=== PATIENT | female | born 2000 | race Caucasian/White ===

== ENCOUNTER 2020-01-18 06:51 | Inpatient (IN) | payer OTHER ==
[2020-01-18] MEDS ORDERED: ELECTROLYTE-148 SOLN 1,000 ML IV SCH ×2 (08:00→09:00)
[2020-01-18] MEDS ORDERED: BUTORPHANOL TARTRATE 1 MG/ML VIAL IVPB ONE (09:41)
[2020-01-18] MEDS ORDERED: PROMETHAZINE HCL 25 MG/1 ML VIAL IVPB ONE (09:41)
--- NOTE | 2020-01-18 09:41 | PD.OB.PROG ---
Past Medical History - Primary Care Physician PCP:: teresa Documenting Provider Type: Laborist - Admission Chief Complaint: pain History of Present Illness: 38 w 4 d. Uneventful History Source: Medical Record, Caregiver - Nursing Documentation Nursing Documentation Reviewed: Yes - Past Medical History PAINT TINTER: Denies/None Cardio/Vascular: Denies/None Pulmonary: Denies/None Gastrointestinal: Denies/None Hepatobiliary: Denies/None Renal/: Denies/None Heme/Onc: Denies/None Infectious Disease: Denies/None Psych: Denies/None Musculoskeletal: Denies/None Rheumatology: Denies/None ENT: Denies/None Endocrine: Denies/None Dermatology: Denies/None - Social History History of Recent Travel: No Review of Systems - Review of Systems Constitutional: reports: No Symptoms Eyes: reports: No Symptoms HENT: reports: No Symptoms Neck: reports: No Symptoms Cardiovascular: reports: No Symptoms Respiratory: reports: No Symptoms Gastrointestinal: reports: No Symptoms Genitourinary: reports: No Symptoms Breasts: reports: No Symptoms Reported Musculoskeletal: reports: No Symptoms Integumentary: reports: No Symptoms Neurological: reports: No Symptoms Endocrine: reports: No Symptoms Hematology/Lymphatic: reports: No Symptoms Psychiatric: reports: No Symptoms Physical Exam - Obstetrical Constitutional: Yes: Well Nourished, No Distress, Calm Eyes: Yes: WNL, Conjunctiva Clear, EOM Intact HENT: Yes: WNL, Atraumatic, Normocephalic Neck: Yes: WNL, Supple, Trachea Midline Cardiovascular: Yes: WNL, Regular Rate and Rhythm Lungs: Clear to auscultation Breast(s): Yes: WNL - Abdominal Exam/OB Fundal Height: 40 Number of Fetuses: Single Presentation: Vertex Regularity: Regular Intensity: Mild/Mod Monitor Mode: External Heart Rate Location: LUQ Category: I Accelerations: Non-Uniform Decelerations: None - Vaginal Exam/OB Vaginal Exam Deferred: No Speculum Exam: No Dilatation (cm): 2 Effacement (%): 50 Amniotic Membrane Status: Intact Presentation: Vertex/Position Station: -2 - Physical Exam Musculoskeletal: Yes: WNL Problem List - Problems (1) 38 weeks gestation of Code(s): Z3A.38 - 38 WEEKS GESTATION OF Assessment/Plan Early labor. In pain; moni D/W Dr. Dodson. Stadileep/[place]. Expecting delivery today.
[2020-01-18 10:41] LABS: BASO % 0.4 % (0-2.0); EOS % 0.2 % (0-4.5); HEMATOCRIT 37.7 % (32.4-45.2); HEMOGLOBIN 12.7 GM/dL (10.7-15.3); LYMPH % 9.1 % (8-40); MCHC 33.7 g/dl (32.0-36.0); MEAN CELL VOLUME 94.9 fl (80-96); MEAN PLT VOLUME 8.2 fl (7.5-11.1); MONO % 5.5 % (3.8-10.2); NEUT % 84.8 % (42.8-82.8); PLATELET COUNT 234 K/MM3 (134-434); RBC 3.97 M/mm3 (3.60-5.2); RDW 13.5 % (11.6-15.6); WHITE BLOOD COUNT 10.3 K/mm3 (4.0-10.0)
[2020-01-18 10:48] LABS: PROTHROMBIN TIME (PATIENT) 11.8 SEC (9.7-13.0)
[2020-01-18 10:51] LABS: ACTIVATED PTT 25.3 SECONDS (25.2-36.5)
[2020-01-18 11:00] LABS: CALCIUM 8.5 mg/dL (8.5-10.1); CREATININE 0.7 mg/dL (0.55-1.3)
[2020-01-18] MEDS ORDERED: BUTORPHANOL TARTRATE 2 MG/ML VIAL ONE (11:02)
[2020-01-18] MEDS ORDERED: PROMETHAZINE HCL 25 MG/1 ML VIAL ONE (11:02)
[2020-01-18 11:05] LABS: BLOOD UREA NITROGEN 6.8 mg/dL (7-18)
[2020-01-18] MEDS ORDERED: AMPICILLIN SODIUM 2 GM VIAL ONE (11:14)
[2020-01-18 11:24] VITALS: BMI 32.1
[2020-01-18] MEDS: AMPICILLIN - 2 GM in SODIUM CHLORIDE 100 ML IVPB ONE ×2 (11:30→15:57)
--- NOTE | 2020-01-18 11:42 | HP ---
Past Medical History - Primary Care Physician PCP:: Elizabeth Hankins - Admission Chief Complaint: IUP 38+4/7 complaning of felling contractions History of Present Illness: 19 Y/O , IUP 38+4/7, GBS +ve, complaining of felling contractions Patient checked initially by [facility] doctor found to be 2/50/-2 with painful contraction Q3-5 minutes, stadol given On reexamination by me VE: 4/80/-2 [place]: Contraction Q3-5 min FHR: Category I A/P will start pitocin augmentation Start Ampicillin Epidural PRN History Source: Patient, Transfer Record Limitations to Obtaining History: No Limitations - Past Medical History ...: 3 ...Para: 0 ...Term: 0 ...: 0 ...Spon : 2 ...Induced : 1 ...Living Children: 0 ...Multiple Gestation: 0 ...LMP: 04/25/19 ... Weeks Gestation by Dates: 38.4 ...EDC by Dates: 01/30/20 ...EDC by Sono: 01/29/20 - Past Surgical History Hx Myomectomy: No Hx Transabdominal Cerclage: No - Smoking History Smoking history: Never smoked Have you smoked in the past 12 months: No - Alcohol/Substance Use Hx Alcohol Use: No History of Substance Use: reports: None - Social History Usual Living Arrangement: Yes: With Parent Do you think of yourself as: Straight/Heterosexual ADL: Independent History of Recent Travel: No Home Medications - Allergies Allergies/Adverse Reactions: Allergies Allergy/AdvReac Type Severity Reaction Status Date / Time No Known Allergies Allergy Verified 01/18/20 08:18 - Home Medications Home Medications: Ambulatory Orders Pnv No.95/Ferrous Fum/Folic AC [ Formula] 1 each PO DAILY 01/18/20 Family Medical History Family History: Denies Review of Systems - Review of Systems Constitutional: reports: No Symptoms Eyes: reports: No Symptoms HENT: reports: No Symptoms Neck: reports: No Symptoms Cardiovascular: reports: No Symptoms Respiratory: reports: No Symptoms Gastrointestinal: reports: No Symptoms Genitourinary: reports: No Symptoms Breasts: reports: No Symptoms Reported Musculoskeletal: reports: No Symptoms Integumentary: reports: No Symptoms Neurological: reports: No Symptoms Endocrine: reports: No Symptoms Hematology/Lymphatic: reports: No Symptoms Psychiatric: reports: No Symptoms Physical Exam - Maternity Vital Signs: Vital Signs Temperature 98.2 F 01/18/20 10:00 Pulse Rate 70 01/18/20 10:00 Respiratory Rate 18 01/18/20 10:00 Blood Pressure 111/75 01/18/20 10:00 O2 Sat by Pulse Oximetry (%) Constitutional: Yes: Well Nourished, No Distress Eyes: Yes: WNL HENT: Yes: WNL Neck: Yes: WNL Cardiovascular: Yes: WNL Lungs: Clear to auscultation Breast(s): Yes: WNL - Abdominal Exam/OB Fundal Height: 38 Number of Fetuses: Single Presentation: Vertex Contractions: Yes Regularity: Irregular Intensity: Mild/Mod Monitor Mode: External Heart Rate (range): 140-150 Category: I Decelerations: None - Vaginal Exam/OB Vaginal Bleeding: No Dilatation (cm): 4 Effacement (%): 80 Amniotic Membrane Status: Intact Presentation: Vertex/Position Station: -2 - Physical Exam Extremities: Yes: WNL Edema: No Integumentary: Yes: WNL ...Motor Strength: WNL Psychiatric: Yes: WNL - Labs Lab Results: CBC, BMP 01/18/20 10:04 01/18/20 10:04 Hemorrhage Risk Assessment - Risk Factors Medium Risk Factors: Yes: None Risk Score: 1 Risk Level: Medium Risk Problem List - Problems (1) 38 weeks gestation of Problems reviewed: Yes Code(s): Z3A.38 - 38 WEEKS GESTATION OF Assessment/Plan 19 Y/O , IUP 38+4/7, GBS +ve, complaining of felling contractions Patient checked initially by [facility] doctor found to be 2/50/-2 with painful contraction Q3-5 minutes, stadol given On reexamination by me VE: 4/80/-2 [place]: Contraction Q3-5 min FHR: Category I A/P will start pitocin augmentation Start Ampicillin Epidural PRN
[2020-01-18] MEDS ORDERED: OXYTOCIN 30 UNITS in 0.9% NS 30 UNIT/500 ML INFUS.BAG IVPB ONE (12:15)
[2020-01-18] MEDS: OXYTOCIN 30 UNITS in 0.9% NS 30 UNIT/500 ML INFUS.BAG IVPB SCH (12:15)
[2020-01-18] MEDS ORDERED: AMPICILLIN - 1 GM in SODIUM CHLORIDE 100 ML IVPB SCH ×2 (13:15→19:30)
[2020-01-18] MEDS ORDERED: FENTANYL/BUPIVACAINE/NS/PF - PCEA - 50 ML DISP.SYRIN EP ONE (14:14)
[2020-01-18] MEDS ORDERED: PCA PUMP NR ONE (14:14)
[2020-01-18] MEDS ORDERED: NALOXONE HCL 0.4 MG/ML VIAL IVPUSH PRN (14:44)
[2020-01-18] MEDS: FENTANYL/BUPIVACAINE/NS/PF - PCEA - 50 ML DISP.SYRIN EP SCH (14:45)
--- NOTE | 2020-01-18 15:09 | PN ---
Progress Note (short form) - Note Progress Note: Patient complaining of contractions pain, requesting epidural. FHR: Catg I [place]: contractions Q4-5 min VE: 4/80/-2 no change A/P Epidural as per patient request. Pitocin augmentation. Cont. ampicilli. Anticipating > Problem List - Problems (1) 38 weeks gestation of Code(s): Z3A.38 - 38 WEEKS GESTATION OF
[2020-01-18] MEDS ORDERED: AMPICILLIN SODIUM 1 GM VIAL ONE ×2 (15:35→20:21)
--- NOTE | 2020-01-18 16:17 | PN ---
Progress Note (short form) - Note Progress Note: Patient seen and examined at bedside FHR: Catg I with some variable decelerations [place]: contractions Q2-3 min VE: 7/100/0 SROM clear A/P Cont. Pitocin augmentation. Cont. ampicilli. Anticipating . Problem List - Problems (1) 38 weeks gestation of Code(s): Z3A.38 - 38 WEEKS GESTATION OF
[2020-01-18] MEDS ORDERED: OXYTOCIN 20 UNITS in 0.9% NS 20 UNIT/1,000 ML INFUS.BAG IV ONE (16:50)
[2020-01-18] MEDS ORDERED: ACETAMINOPHEN 325 MG TABLET (FP) ONE (16:50)
--- NOTE | 2020-01-18 16:52 | PN ---
Progress Note (short form) - Note Progress Note: Patient seen and examined at bedside Temp 99.7 FHR: Catg II @160-170 [place]: contractions Q2-3 min VE: 9/100/0 A/P Cont. Pitocin augmentation. Cont. ampicilli. IVF bouls Tylenol 650 mg PO x1 Anticipating . Problem List - Problems (1) 38 weeks gestation of Code(s): Z3A.38 - 38 WEEKS GESTATION OF
[2020-01-18] MEDS ORDERED: ACETAMINOPHEN 325 MG TABLET (FP) PO ONE (17:01)
--- NOTE | 2020-01-18 17:40 | PN ---
Progress Note (short form) - Note Progress Note: Patient seen and examined at bedside, fells pe;justice pressure and wants to push Temp 100 FHR: Catg II @160-170 [place]: contractions Q2-3 min VE: Ant. lip/100/0 A/P Laboring down Cont. Pitocin augmentation. Cont. ampicillin. IVF bouls given Tylenol 650 mg PO given Anticipating . Problem List - Problems (1) 38 weeks gestation of Code(s): Z3A.38 - 38 WEEKS GESTATION OF
[2020-01-18] MEDS ORDERED: BENZOCAINE 28 GM HEMORRHOIDAL OINTMENT TP PRN (18:34)
[2020-01-18] MEDS ORDERED: BENZOCAINE 20% 57 GM BOTTLE TP PRN (18:34)
[2020-01-18] MEDS ORDERED: METHYLERGONOVINE MALEATE 0.2 MG/1 ML AMP IM PRN (18:34)
[2020-01-18] MEDS ORDERED: WITCH HAZEL 50% (TUCKS) 40 PAD/JAR PAD TP PRN (18:34)
[2020-01-18] MEDS ORDERED: BISACODYL 10 MG SUPP.RECT RC PRN (18:34)
--- NOTE | 2020-01-18 18:45 | PN ---
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
[2020-01-18 19:09] LABS: CORD BASE EXCESS -6.5 mmol/L (0-2); CORD PCO2 43.2 mmHg (30-78); CORD pH 7.284 (7.14-7.44)
[2020-01-18 19:14] LABS: CORD PCO2 38.6 mmHg (30-78); CORD pH 7.286 (7.14-7.44)
[2020-01-18] MEDS ORDERED: GENTAMICIN SO4 80 MG/2 ML VIAL ONE (19:14)
[2020-01-18] MEDS ORDERED: CLINDAMYCIN PHOSPHATE 600 MG/4 ML VIAL ONE (19:15)
[2020-01-18] MEDS: GENTAMICIN 80 MG PREMIXED IVPB 80 MG/100 ML BAG IVPB SCH (19:15)
[2020-01-18] MEDS: CLINDAMYCIN 900 MG PREMIX IVPB 900 MG/50 ML BAG IVPB SCH (20:00)
[2020-01-19] MEDS ORDERED: AMPICILLIN SODIUM 1 GM VIAL ONE ×3 (00:39→07:55)
[2020-01-19] MEDS: AMPICILLIN - 1 GM in SODIUM CHLORIDE 100 ML IVPB SCH ×6 (01:02→21:53)
[2020-01-19] MEDS ORDERED: GENTAMICIN 80 MG PREMIXED IVPB 80 MG/100 ML BAG IVPB SCH (02:00)
[2020-01-19] MEDS ORDERED: CLINDAMYCIN 900 MG PREMIX IVPB 900 MG/50 ML BAG IVPB SCH (02:00)
[2020-01-19] MEDS: CLINDAMYCIN 900 MG PREMIX IVPB 900 MG/50 ML BAG IVPB SCH ×3 (02:11→17:33)
[2020-01-19] MEDS: IBUPROFEN 600 MG TABLET (FP) PO PRN ×2 (02:17→21:53)
[2020-01-19] MEDS: ACETAMINOPHEN 325 MG TABLET (FP) PO PRN ×2 (02:18→21:53)
[2020-01-19] MEDS: GENTAMICIN 80 MG PREMIXED IVPB 80 MG/100 ML BAG IVPB SCH ×3 (03:10→18:23)
[2020-01-19] MEDS ORDERED: CLINDAMYCIN PHOSPHATE 600 MG/4 ML VIAL ONE (07:55)
[2020-01-19] MEDS: FERROUS SO4 325 MG TABLET (FP) PO SCH ×2 (08:44→18:23)
[2020-01-19 09:15] LABS: BASO % 0.3 % (0-2.0); EOS % 0.5 % (0-4.5); HEMATOCRIT 33.2 % (32.4-45.2); HEMOGLOBIN 11.1 GM/dL (10.7-15.3); LYMPH % 11.4 % (8-40); MCH 31.6 pg (25.7-33.7); MCHC 33.5 g/dl (32.0-36.0); MEAN CELL VOLUME 94.2 fl (80-96); MEAN PLT VOLUME 7.6 fl (7.5-11.1); MONO % 6.8 % (3.8-10.2); PLATELET COUNT 215 K/MM3 (134-434); RBC 3.53 M/mm3 (3.60-5.2); RDW 13.4 % (11.6-15.6); WHITE BLOOD COUNT 11.6 K/mm3 (4.0-10.0)
[2020-01-19] MEDS: PRENATAL VITAMINS W/ FOLIC ACID TABLET (FP) PO SCH (09:15)
--- NOTE | 2020-01-19 16:48 | PN ---
Progress Note (short form) - Note Progress Note: #1 afebrile , no vaginal bleeding , mild lochia tolerated diet well . ambulate . fundus firm below umbilicus . mild lochia will cont. ambulate perinum care instructions given pain management prn F/u in [facility] in 6weeks .
[2020-01-19] MEDS: OXYTOCIN 30 UNITS in 0.9% NS 30 UNIT/500 ML INFUS.BAG IVPB SCH (21:52)
[2020-01-19] MEDS: FENTANYL/BUPIVACAINE/NS/PF - PCEA - 50 ML DISP.SYRIN EP SCH (21:52)
[2020-01-19] MEDS ORDERED: SENNOSIDES/DOCUSATE COMBO (SENNA PLUS) TABLET (UD) PO PRN (22:00)
[2020-01-19] MEDS: OXYTOCIN 20 UNITS in 0.9% NS 20 UNIT/1,000 ML INFUS.BAG IV SCH (23:44)
[2020-01-20] MEDS: PRENATAL VITAMINS W/ FOLIC ACID TABLET (FP) PO SCH (11:25)
[2020-01-20] MEDS: FERROUS SO4 325 MG TABLET (FP) PO SCH ×2 (11:25→17:22)
[2020-01-20] MEDS: IBUPROFEN 600 MG TABLET (FP) PO PRN (11:26)
[2020-01-20 16:02] VITALS: BP 116/81; PULSE 77; TEMP 98
--- NOTE | 2020-01-20 16:16 | PD.OB.PROG ---
Past Medical History - Primary Care Physician PCP:: Elizabeth Hankins Documenting Provider Type: Laborist - Admission Chief Complaint: lower extremity soreness on left side lower calf to ankle area History Source: Patient Limitations to Obtaining History: No Limitations - Nursing Documentation Maternal Triage Index: Maternal Triage Index ( Priority 4, Non-urgent MFTI) Maternal Triage Index ( Priority 4, Non-urgent MFTI) Hemorrhage Risk Assessment: Risk Level Low Risk High Level Risk Factors for None Hemorrhage Medium Level Risk Factors for None of the above Hemorrhage Low Level Risk Factors for No previous uterine incis,Logan Pregnaancy, Hemorrhage Four (4) or less previous,No known bleeding,No history of PPH Nursing Documentation Reviewed: Yes - Past Medical History ...: 3 ...Para: 0 ...Term: 0 ...: 0 ...Spon : 2 ...Induced : 1 ...Living Children: 0 ...Multiple Gestation: 0 ...LMP: 04/25/19 ... Weeks Gestation by Dates: 38.4 ...EDC by Dates: 01/30/20 ...EDC by Sono: 01/29/20 - Smoking History Smoking history: Never smoked Have you smoked in the past 12 months: No - Alcohol/Substance Use Hx Alcohol Use: No History of Substance Use: reports: None - Social History ADL: Independent History of Recent Travel: No Physical Exam - Obstetrical Vital Signs: Vital Signs Temperature 98.0 F 01/20/20 10:00 Pulse Rate 77 01/20/20 10:00 Respiratory Rate 18 01/20/20 10:00 Blood Pressure 116/81 01/20/20 10:00 O2 Sat by Pulse Oximetry (%) 100 01/18/20 19:15 - Labs Lab Results: CBC, BMP 01/19/20 08:55 01/18/20 10:04 Assessment/Plan called by to see pt re: complaint of LLE discomfort. states both legs were a little sore after being in lithotomy for delivery, but now a little still sore on left when walking denies sob, cp. vss ext: no edema, no calf tenderness, erythema, warmth, cords palpated, leslie's or amaya's b/l a/p ppd 2 s/p L lower leg pain w ambulation (mild and intermittent) will get L lower ext doppler to evaluate spoke w Dr. Hankins further mgmt per him.
== END 2020-01-20 19:00 | disposition home or self-care (01) | DRG 560 ==
LOC: JDEL 06:51 → JLDR 09:50 → J3N 20:43 → J3W 01-19 13:45
PROVIDERS: ADMIT Internal Medicine; ATTEND Internal Medicine
PROC: 10E0XZZ Delivery of Products of Conception, External Approach (ICD-10-PCS; principal; 2020-01-18)
PROC: 0HQ9XZZ Repair Perineum Skin, External Approach (ICD-10-PCS; 2020-01-18)
DX: O70.0 First degree perineal laceration during delivery (principal); Z3A.39 39 weeks gestation of pregnancy; Z37.0 Single live birth; O99.824 Streptococcus B carrier state complicating childbirth; M79.662 Pain in left lower leg; Z90.49 Acquired absence of other specified parts of digestive tract
CPT/HCPCS: 36415; 36600; 59025; 59409; 80048; 82803; 85025; 85610; 85730; 86780; 86850; 86900; 86901; 93971-TC; U0003

== ENCOUNTER 2022-05-08 20:38 | Emergency (ER) | payer OTHER ==
[2022-05-08 20:58] VITALS: BP 119/63; PULSE 97; RESP 18; TEMP 98.2; BMI 27.4
[2022-05-08 21:40] LABS: BASO % 0.5 % (0-2.0); EOS % 1.2 % (0-4.5); HEMATOCRIT 37.8 % (32.4-45.2); HEMOGLOBIN 13.3 GM/dL (10.7-15.3); LYMPH % 21.9 % (8-40); MCH 33.7 pg (25.7-33.7); MCHC 35.2 g/dl (32.0-36.0); MEAN CELL VOLUME 95.8 fl (80-96); MEAN PLT VOLUME 7.4 fl (7.5-11.1); MONO % 9.5 % (3.8-10.2); NEUT % 66.9 % (42.8-82.8); PLATELET COUNT 295 10^3/uL (134-434); RBC 3.95 M/mm3 (3.60-5.2); RDW 12.9 % (11.6-15.6); WHITE BLOOD COUNT 9.4 K/mm3 (4.0-10.0)
[2022-05-08 21:43] LABS: EPI CELLS 33 /uL (0-25.1); HYALINE CASTS 1 /uL (0-3.1); PH,URINE 6.5 (5.0-8.0); URINE APPEARANCE CLEAR; URINE BACTERIA 140 /uL (0-1359); URINE BILIRUBIN NEGATIVE (NEGATIVE); URINE COLOR YELLOW; URINE GLUCOSE (UA) NEGATIVE (NEGATIVE); URINE KETONE TRACE (NEGATIVE); URINE LEUK ESTERASE 1+ (NEGATIVE); URINE NITRITE NEGATIVE (NEGATIVE); URINE PROTEIN TRACE (NEGATIVE); URINE RBC 9 /uL (0-23.9); URINE UROBILINOGEN 0.2 mg/dL (0.2-1.0); URINE WBC 62 /uL (0-25.8)
[2022-05-08 22:01] LABS: CALCIUM 8.9 mg/dL (8.5-10.1)
[2022-05-08 22:02] LABS: ALBUMIN 3.9 g/dl (3.4-5.0); BLOOD UREA NITROGEN 10.8 mg/dL (7-18)
[2022-05-08 22:05] LABS: CREATININE 0.7 mg/dL (0.55-1.3)
[2022-05-08 22:06] LABS: BILIRUBIN,TOTAL 0.1 mg/dL (0.2-1)
[2022-05-08 22:07] LABS: TOT PROT 7.4 g/dl (6.4-8.2)
== END 2022-05-08 23:45 | disposition left against medical advice (07) ==
LOC: JERFT 20:38 → JER 20:38
DX: O26.891 Other specified pregnancy related conditions, first trimester (principal); R10.9 Unspecified abdominal pain; Z3A.01 Less than 8 weeks gestation of pregnancy
CPT/HCPCS: 36415; 76817-TC; 80053; 81003; 84702; 85025; 86850; 86900; 86901; 87070; 87077; 87086; 87205; 87491; 87591; 99284-25